=== PATIENT | female | born 2000 | race Two or more races ===

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

== ENCOUNTER 2018-01-13 16:27 | Outpatient (CLI) | payer OTHER | END 2018-01-13 16:50 | disposition home or self-care (01) | LOC: LAB 16:27 | DX: R50.9 Fever, unspecified (principal) ==

== ENCOUNTER → 2018-01-13 | Outpatient (CLI) | payer OTHER ==
[~2018-01-13] MED LIST: LAMICTAL5 MG; RISPERDAL0.25 MG
== END | disposition home or self-care (01) ==
LOC: PPHC 15:27
DX: J06.9 Acute upper respiratory infection, unspecified (principal)

== ENCOUNTER → 2019-01-10 14:24 | Outpatient (CLI) | payer OTHER | END | disposition home or self-care (01) | LOC: LAB 14:24 | DX: K29.00 Acute gastritis without bleeding (principal); R10.13 Epigastric pain ==

== ENCOUNTER 2019-01-23 10:37 | Outpatient (CLI) | payer OTHER | END 2019-01-23 10:47 | disposition home or self-care (01) | LOC: LAB 10:37 | DX: K29.00 Acute gastritis without bleeding (principal); R10.13 Epigastric pain ==

== ENCOUNTER 2019-05-27 13:26 | Emergency (ER) | payer OTHER ==
[~2019-05-27] VITALS: Ht 160 cm; Wt 58.1 kg
== END 2019-05-27 18:08 | disposition home or self-care (01) ==
LOC: ER 13:26
DX: J32.8 Other chronic sinusitis (principal)

== ENCOUNTER 2019-07-20 16:29 | Outpatient (CLI) | payer OTHER | END 2019-07-20 17:15 | disposition home or self-care (01) | LOC: RAD 16:29 | DX: Z13.6 Encounter for screening for cardiovascular disorders (principal); R53.1 Weakness; E04.0 Nontoxic diffuse goiter ==

== ENCOUNTER → 2019-08-11 16:01 | Outpatient (CLI) | payer OTHER | END | disposition home or self-care (01) | LOC: LAB 16:01 | DX: R53.1 Weakness (principal); R55 Syncope and collapse; Z13.6 Encounter for screening for cardiovascular disorders; M25.30 Other instability, unspecified joint; E04.0 Nontoxic diffuse goiter; E16.1 Other hypoglycemia ==

== ENCOUNTER 2019-08-16 10:42 | Outpatient (CLI) | payer OTHER | END 2019-08-16 15:00 | disposition home or self-care (01) | LOC: LAB 10:42 | DX: R53.1 Weakness (principal); M25.30 Other instability, unspecified joint; E13.65 Other specified diabetes mellitus with hyperglycemia; E16.2 Hypoglycemia, unspecified; E04.0 Nontoxic diffuse goiter; Z12.11 Encounter for screening for malignant neoplasm of colon; Z11.4 Encounter for screening for human immunodeficiency virus [HIV] ==

== ENCOUNTER 2019-08-16 12:40 | Outpatient (CLI) | payer OTHER | END 2019-08-16 12:52 | disposition home or self-care (01) | LOC: TOM 12:40 | DX: R55 Syncope and collapse (principal); R53.1 Weakness ==